=== PATIENT | female | born 1980 | race American Indian/Alaskan Native ===

== ENCOUNTER 2019-03-28 21:07 | Emergency (ER) | payer SELFPAY ==
--- NOTE | 2019-03-28 21:49 | Event Note ---
ED Screening Note Date of service: 03/28/19 ED Screening Note: This initial assessment/diagnostic orders/clinical plan/treatment(s) is/are subject to change based on patients health status, clinical progression and re- assessment by fellow clinical providers in the ED. Further treatment and workup at subsequent clinical providers discretion. Patient/guardian urged not to elope from the ED as their condition may be serious if not clinically assessed and managed. Initial orders include: 38yo BF states that she has L back pain that has become progressively worse since yesterday. She states that movement makes it worse.
[2019-03-28] MEDS ORDERED: KETOROLAC 60 MG/2 ML INJ IM ONE (23:29)
[2019-03-28] MEDS ORDERED: CYCLOBENZAPRINE 10 MG TAB PO ONE (23:29)
[2019-03-28] MEDS ORDERED: dexAMETHasone 4 MG/ML VIAL IM ONE (23:29)
--- NOTE | 2019-03-28 23:51 | Emergency Department Report ---
ED Back Pain/Injury HPI - General Chief Complaint: Back Pain/Injury Stated Complaint: BACK PAIN DIFF WALKING Time Seen by Provider: 03/28/19 23:25 Source: patient Limitations: No Limitations - History of Present Illness Initial Comments: Patient is a 38-year-old female presents emergency room with complaints of left lower back pain that began yesterday. She states that the pain radiates to her left buttock and down the back of her left leg. she denies any fall or injury. She denies any heavy lifting. She denies any numbness, weakness, bowel or bladder incontinence. The patient denies any vomiting, diarrhea, fever, abdominal pain, urinary symptoms. Denies ever having this in the past. She has a past medical history of anxiety. She denies any allergies medications. She states her last mental cycle was a week ago. - Related Data Previous Rx's Medication Instructions Recorded Last Taken Type Ciprofloxacin HCl [Cipro] 500 mg PO Q12H #14 tab 10/26/14 Unknown Rx Ibuprofen [Motrin] 800 mg PO TID PRN #20 tablet 10/26/14 Unknown Rx Phenazopyridine HCl [Pyridium] 100 mg PO TID #6 tablet 10/26/14 Unknown Rx Cyclobenzaprine [Flexeril] 10 mg PO QHS PRN #10 tablet 03/29/19 Unknown Rx Naproxen [EC-Naproxen] 500 mg PO BID PRN #20 tablet. 03/29/19 Unknown Rx Allergies Allergy/AdvReac Type Severity Reaction Status Date / Time No Known Allergies Allergy Unverified 10/26/14 16:09 ED Review of Systems ROS: Stated complaint: BACK PAIN DIFF WALKING Other details as noted in HPI Comment: All other systems reviewed and negative ED Past Medical Hx - Past Medical History Previous Medical History?: Yes Additional medical history: Scoliosis - Surgical History Past Surgical History?: Yes Additional Surgical History: C-sections X 3. Tubal Ligation - Social History Smoking Status: Current Every Day Smoker Substance Use Type: Alcohol - Medications Home Medications: Home Medications Medication Instructions Recorded Confirmed Last Taken Type Ciprofloxacin HCl [Cipro] 500 mg PO Q12H #14 tab 10/26/14 Unknown Rx Ibuprofen [Motrin] 800 mg PO TID PRN #20 tablet 10/26/14 Unknown Rx Phenazopyridine HCl [Pyridium] 100 mg PO TID #6 tablet 10/26/14 Unknown Rx Cyclobenzaprine [Flexeril] 10 mg PO QHS PRN #10 tablet 03/29/19 Unknown Rx Naproxen [EC-Naproxen] 500 mg PO BID PRN #20 tablet. 03/29/19 Unknown Rx ED Physical Exam - General Limitations: No Limitations General appearance: alert, in no apparent distress - Head Head exam: Present: atraumatic, normocephalic - Eye Eye exam: Present: normal appearance - ENT ENT exam: Present: mucous membranes moist - Neck Neck exam: Present: normal inspection, full ROM. Absent: tenderness - Respiratory Respiratory exam: Present: normal lung sounds bilaterally. Absent: respiratory distress, wheezes, rales, rhonchi, stridor, chest wall tenderness, accessory muscle use, decreased breath sounds, prolonged expiratory - Cardiovascular Cardiovascular Exam: Present: regular rate, normal rhythm, normal heart sounds. Absent: systolic murmur, diastolic murmur, rubs, gallop - Back Exam Back exam: Present: normal inspection, full ROM, paraspinal tenderness (left lumbar paraspinal muscular TTP, TTP over the left gluteal region, bleach boiler filler: KAVITA Chavez, no midline C-spine, T-spine or L-spine tenderness, no step offs no deformity). Absent: vertebral tenderness - Neurological Exam Neurological exam: Present: alert, oriented X3, CN II-XII intact, other (5/5 strength in the BUE/BLE, equal musical instruments assembler strength, sensation intact throughout, no focal neuro deficit). Absent: motor sensory deficit - Psychiatric Psychiatric exam: Present: normal affect, normal mood - Skin Skin exam: Present: warm, dry, intact ED Course Vital Signs 03/28/19 03/28/19 03/29/19 21:18 23:18 01:10 Temperature 99.1 F Pulse Rate 105 H 97 H 81 Respiratory 16 22 16 Rate Blood Pressure 136/75 Blood Pressure 139/82 114/70 [Left] O2 Sat by Pulse 99 97 100 Oximetry ED Medical Decision Making - Medical Decision Making Patient is a 38-year-old female presents emergency room with complaints of left lower back pain that began yesterday. She states that the pain radiates to her left buttock and down the back of her left leg. she denies any fall or injury. She denies any heavy lifting. She denies any numbness, weakness, bowel or bladder incontinence. The patient denies any vomiting, diarrhea, fever, abdominal pain, urinary symptoms. Denies ever having this in the past. She has a past medical history of anxiety. She denies any allergies medications. She states her last mental cycle was a week ago. Initial vitals with elevated heart rate which improved upon repeat. On exam left lumbar paraspinal muscular TTP, TTP over the left gluteal region, bleach boiler filler: KAVITA Chavez, no midline C-spine, T- spine or L-spine tenderness, no step offs no deformity, no neurological deficits. Symptoms and examination consistent with sciatica. Patient does not have any red flag warning signs of back pain. She has no trauma, unexplained weight loss, neurological symptoms, age is not greater than 50, no fever, no IV drug use, no steroid use, no history of cancer. Patient given Toradol, steroids, Flexeril and back pain significantly improved. Patient given prescription for Flexeril and naproxen. advised pt to Please take medication as prescribed. Do not drive or operate heavy machinery while taking muscle relaxer. May use ice pack, heating pad, rest, epsom salt bath. Follow-up with a primary care doctor the next 2-3 days. Please do the stretching for sciatica. Return to the emergency room for any new or worsening symptoms. - Differential Diagnosis strain, sprain, DDD, disc herniation, sciatica Critical care attestation.: If time is entered above; I have spent that time in minutes in the direct care of this critically ill patient, excluding procedure time. ED Disposition Clinical Impression: Sciatica Qualifiers: Laterality: left Qualified Code(s): M54.32 - Sciatica, left side Disposition: TO HOME OR SELFCARE Is pt being admited?: No Does the pt Need Aspirin: No Condition: Stable Instructions: Sciatica (ED) Additional Instructions: Please take medication as prescribed. Do not drive or operate heavy machinery while taking muscle relaxer. May use ice pack, heating pad, rest, epsom salt bath. Follow-up with a primary care doctor the next 2-3 days. Please do the stretching for sciatica. Return to the emergency room for any new or worsening symptoms. Prescriptions: Cyclobenzaprine [Flexeril] 10 mg PO QHS PRN #10 tablet PRN Reason: Muscle Spasm Naproxen [EC-Naproxen] 500 mg PO BID PRN #20 tablet.dr EDGE Reason: pain Referrals: GISEL BRIGGS MD [Primary Care Provider] - 2-3 Days Time of Disposition: 00:43 Print Language: LATVIAN
[2019-03-29 03:01] VITALS: BP 114/70
== END 2019-03-29 01:15 | disposition home or self-care (01) ==
LOC: ED 21:07
DX: M54.32 Sciatica, left side (principal); F17.200 Nicotine dependence, unspecified, uncomplicated; Z98.51 Tubal ligation status; Z79.899 Other long term (current) drug therapy; Z98.890 Other specified postprocedural states
CPT/HCPCS: 96372; 99282; J1100; J1885

== ENCOUNTER 2020-10-29 15:35 | Emergency (ER) | payer SELFPAY ==
[2020-10-29] MEDS ORDERED: IBUPROFEN 600 MG TAB PO ONE (17:22)
[2020-10-29] MEDS ORDERED: hydrOXYzine HCL 25 MG TAB PO ONE (18:00)
--- NOTE | 2020-10-29 18:13 | Emergency Department Report ---
ED Extremity Problem HPI - General Chief complaint: Extremity Injury, Lower Stated complaint: RT CALF PAIN, ANXIETY ATTACKS Time Seen by Provider: 10/29/20 17:07 Source: patient Mode of arrival: Ambulatory Limitations: No Limitations - History of Present Illness Initial comments: Patient is a 40-year-old female presents emergency room with complaints of right calf pain that began this morning. She states that she also feels like her calf is swollen. She denies any fall or injury. She denies any fever, redness, increased warmth, numbness, weakness, chest pain, shortness of breath. He denies any recent travel, recent surgery, recent immobilization, hormone use. Patient states that she is also been having panic attacks. She states that she takes Xanax for anxiety. She denies any SI or HI. No allergies to medications. Severity scale (0 -10): 5 - Related Data Previous Rx's Medication Instructions Recorded Last Taken Type Ciprofloxacin HCl [Cipro] 500 mg PO Q12H #14 tab 10/26/14 Unknown Rx Ibuprofen [Motrin] 800 mg PO TID PRN #20 tablet 10/26/14 Unknown Rx Phenazopyridine HCl [Pyridium] 100 mg PO TID #6 tablet 10/26/14 Unknown Rx Cyclobenzaprine [Flexeril] 10 mg PO QHS PRN #10 tablet 03/29/19 Unknown Rx Naproxen [EC-Naproxen] 500 mg PO BID PRN #20 tablet. 03/29/19 Unknown Rx Allergies Allergy/AdvReac Type Severity Reaction Status Date / Time No Known Allergies Allergy Verified 10/29/20 16:31 ED Review of Systems ROS: Stated complaint: RT CALF PAIN, ANXIETY ATTACKS Other details as noted in HPI Comment: All other systems reviewed and negative ED Past Medical Hx - Past Medical History Additional medical history: Scoliosis/ ANXIETY - Surgical History Additional Surgical History: C-sections X 3. Tubal Ligation - Social History Smoking Status: Current Every Day Smoker Substance Use Type: Alcohol - Medications Home Medications: Home Medications Medication Instructions Recorded Confirmed Last Taken Type Ciprofloxacin HCl [Cipro] 500 mg PO Q12H #14 tab 10/26/14 Unknown Rx Ibuprofen [Motrin] 800 mg PO TID PRN #20 tablet 10/26/14 Unknown Rx Phenazopyridine HCl [Pyridium] 100 mg PO TID #6 tablet 06/29/15 Unknown Rx Cyclobenzaprine [Flexeril] 10 mg PO QHS PRN #10 tablet 03/29/19 Unknown Rx Naproxen [EC-Naproxen] 500 mg PO BID PRN #20 tablet. 03/29/19 Unknown Rx ED Physical Exam - General Limitations: No Limitations General appearance: alert, anxious - Head Head exam: Present: atraumatic, normocephalic - Eye Eye exam: Present: normal appearance - ENT ENT exam: Present: mucous membranes moist - Extremities Exam Extremities exam: Present: other (ttp to the right lateral calf, no obvious edema, no bony ttp, no skin changes, FROM of the RLE, neurovascularly intact) - Neurological Exam Neurological exam: Present: alert, oriented X3 - Psychiatric Psychiatric exam: Present: anxious. Absent: homicidal ideation, suicidal ideation - Skin Skin exam: Present: warm, dry, intact ED Course Vital Signs 10/29/20 10/29/20 16:32 20:35 Temperature 98.6 F Pulse Rate 108 H 79 Respiratory 18 18 Rate Blood Pressure 144/81 119/60 [Right] O2 Sat by Pulse 95 98 Oximetry ED Medical Decision Making - Lab Data Vital Signs 10/29/20 10/29/20 16:32 20:35 Temperature 98.6 F Pulse Rate 108 H 79 Respiratory 18 18 Rate Blood Pressure 144/81 119/60 [Right] O2 Sat by Pulse 95 98 Oximetry - Radiology Data Radiology results: report reviewed Ordering Physician: GLENN ZACARIAS Date of Service: 10/29/20 Procedure(s): VL venous duplex LE RT Accession Number(s): [id number] cc: GLENN ZACARIAS DUPLEX DOPPLER LOWER EXTREMITY VEINS, RIGHT INDICATION / CLINICAL INFORMATION: right calf pain and swelling. TECHNIQUE: Duplex doppler imaging was performed through the veins of the right lower extremity using venous compression and other maneuvers. COMPARISON: None available. FINDINGS: RIGHT COMMON FEMORAL VEIN: Negative. RIGHT FEMORAL VEIN: Negative. RIGHT POPLITEAL VEIN: Negative. RIGHT CALF VEINS: Negative. ADDITIONAL FINDINGS: None. IMPRESSION: 1. No sonographic evidence for DVT in the right lower extremity. Signer Name: Mercy Wellington MD Signed: 10/29/2020 8:10 PM Workstation Name: [id number] Transcribed By: DT Dictated By: Jose Wellington MD Electronically Authenticated By: Jose Wellington MD Signed Date/Time: 10/29/202009 DD/ 09 TD/TT: Print - Medical Decision Making Patient is a 40-year-old female presents emergency room with complaints of right calf pain that began this morning. She states that she also feels like her calf is swollen. She denies any fall or injury. She denies any fever, redness, increased warmth, numbness, weakness, chest pain, shortness of breath. He denies any recent travel, recent surgery, recent immobilization, hormone use. Patient states that she is also been having panic attacks. She states that she takes Xanax for anxiety. She denies any SI or HI. No allergies to medications. initial vitals with tachycardia which improved upon repeat. on exam:ttp to the right lateral calf, no obvious edema, no bony ttp, no skin changes, FROM of the RLE, neurovascularly intact. US RLE: 1. No sonographic evidence for DVT in the right lower extremity. Patient appears slightly anxious on exam, given hydroxyzine, patient is feeling much better and ready to go home. Discussed all results with patient. Advised patient May take Tylenol or ibuprofen as needed for discomfort. May use ice pack, heating pad, rest, and epsom salt bath. Follow-up with your primary care doctor for reexamination. Return to emergency room for any new or symptoms. Critical care attestation.: If time is entered above; I have spent that time in minutes in the direct care of this critically ill patient, excluding procedure time. ED Disposition Clinical Impression: Right calf pain, Anxiety Disposition: DC-01 TO HOME OR SELFCARE Is pt being admited?: No Does the pt Need Aspirin: No Condition: Stable Instructions: Musculoskeletal Pain, Managing Anxiety, Adult Additional Instructions: May take Tylenol or ibuprofen as needed for discomfort. May use ice pack, heating pad, rest, and epsom salt bath. Follow-up with your primary care doctor for reexamination. Return to emergency room for any new or symptoms. Referrals: your, primary care doctor [Other] - 2-3 Days Time of Disposition: 20:21 Print Language: TELUGU
--- NOTE | 2020-10-29 20:15 | Vascular Lab Report ---
DUPLEX DOPPLER LOWER EXTREMITY VEINS, RIGHT INDICATION / CLINICAL INFORMATION: right calf pain and swelling. TECHNIQUE: Duplex doppler imaging was performed through the veins of the right lower extremity using venous compression and other maneuvers. COMPARISON: None available. FINDINGS: RIGHT COMMON FEMORAL VEIN: Negative. RIGHT FEMORAL VEIN: Negative. RIGHT POPLITEAL VEIN: Negative. RIGHT CALF VEINS: Negative. ADDITIONAL FINDINGS: None. IMPRESSION: 1. No sonographic evidence for DVT in the right lower extremity. Signer Name: Mercy Wellington MD Signed: 10/29/2020 8:10 PM Workstation Name: [id number]
[2020-10-29 21:02] VITALS: BP 119/60
== END 2020-10-29 20:35 | disposition home or self-care (01) ==
LOC: ED 15:35
DX: M79.661 Pain in right lower leg (principal); F41.9 Anxiety disorder, unspecified; F17.200 Nicotine dependence, unspecified, uncomplicated; Z79.899 Other long term (current) drug therapy; Z98.890 Other specified postprocedural states; Z98.51 Tubal ligation status

== ENCOUNTER 2021-06-09 14:13 | Emergency (ER) | payer SELFPAY | END 2021-06-09 16:24 | disposition left against medical advice (07) | LOC: ED 14:13 | DX: R22.1 Localized swelling, mass and lump, neck (principal); Z53.21 Procedure and treatment not carried out due to patient leaving prior to being seen by health care provider ==